=== PATIENT | male | born 1975 | race Caucasian/White ===

== ENCOUNTER 2020-06-24 09:50 | Emergency (ER) | payer SELFPAY ==
[~2020-06-24] VITALS: Ht 157.5 cm; Wt 69.0 kg
[2020-06-24] MEDS ORDERED: BACITRACIN ZINC OINT UDPKT TOP ONE (10:30)
[2020-06-24] MEDS ORDERED: LIDOCAINE 1%/EPI 1:100,000 10 ML VIAL IJ ONE (10:30)
[2020-06-24] MEDS ORDERED: TETANUS, DIPHTHERIA, PERTUSSIS VAC/PF 0.5ML (>7YR OLD) IM ONE (10:30)
[2020-06-24] MEDS ORDERED: HYDROCODONE/ACETAMINOPHEN 5/325MG TABLET PO ONE (10:45)
[2020-06-24] MEDS ORDERED: LIDOCAINE HCL/EPINEPHRINE 1%-EPI 1:100,000 20 ML VIAL INFIL ONE (11:01)
[2020-06-24 11:14] VITALS: BP 101/58
[2020-06-24] MEDS ORDERED: LIDOCAINE HCL 1% 20ML VIAL (Pyxis) INJ INFIL ONE (12:00)
[2020-06-24] MEDS ORDERED: CEFTRIAXONE SODIUM 1 G/VIAL IM ONE (12:00)
== END 2020-06-24 12:37 | disposition home or self-care (01) ==
LOC: ER 10:30
DX: L03.116 Cellulitis of left lower limb (principal); L02.416 Cutaneous abscess of left lower limb; E11.9 Type 2 diabetes mellitus without complications
CPT/HCPCS: 10060; 90471; 90715; 96372; 99284; J0696; J3490; Z7610

== ENCOUNTER 2021-11-12 16:01 | Emergency (ER) | payer SELFPAY ==
[~2021-11-12] VITALS: Ht 165.1 cm; Wt 82.0 kg
[2021-11-12] MEDS ORDERED: TETANUS, DIPHTHERIA, PERTUSSIS VAC/PF 0.5ML (>10YR OLD) IM ONE (16:15)
[2021-11-12] MEDS ORDERED: BACITRACIN ZINC OINT UDPKT TOP ONE (16:15)
[2021-11-12] MEDS ORDERED: LIDOCAINE HCL/PF 1% 10 MG/ML 5ML VIAL INFIL ONE (16:15)
[2021-11-12] MEDS ORDERED: LIDOCAINE HCL 1% 10 MG/ML 10ML VIAL INJ NR (16:45)
[2021-11-12] MEDS ORDERED: CEPH500T MT (17:08)
[2021-11-12] MEDS ORDERED: IBUP-2030 MT (17:08)
[2021-11-12] MEDS ORDERED: SULF1TAB48 MT (17:08)
[2021-11-12] MEDS ORDERED: IBUPROFEN 800MG TABLET PO ONE (17:15)
[2021-11-12 17:44] VITALS: BP 122/82
== END 2021-11-12 17:49 | disposition home or self-care (01) ==
LOC: ER 16:01
DX: L02.31 Cutaneous abscess of buttock (principal); L03.317 Cellulitis of buttock; L03.115 Cellulitis of right lower limb
CPT/HCPCS: 10060; 90471; 90715; 99283; J3490

== ENCOUNTER 2023-04-22 14:11 | Emergency (ER) | payer MEDICAID ==
[~2023-04-22] VITALS: Ht 172.7 cm; Wt 68.0 kg
[~2023-04-22 14:11] MED LIST: CEPH500T MT; CIPR750T4 MT; IBUP-2030 MT; PNV1TABL76 MT; SULF1TAB48 MT
[2023-04-22 14:23] VITALS: BP 103/59; PULSE 98; RESP 20; TEMP 98.5; O2SAT 100
[2023-04-22] MEDS ORDERED: LIDOCAINE HCL/PF 1% 10 MG/ML 5ML VIAL INFIL ONE (18:15)
[2023-04-22] MEDS ORDERED: IBUPROFEN 600MG TABLET PO ONE ×2 (18:15→19:00)
[2023-04-22] MEDS ORDERED: BACITRACIN ZINC OINT UDPKT TOP ONE (18:15)
[2023-04-22] MEDS ORDERED: SULF1TAB48 MT (18:49)
[2023-04-22] MEDS ORDERED: IBUP-2029 MT (18:49)
[2023-04-22] MEDS ORDERED: CEPH500C2 MT (18:49)
[2023-04-22] MEDS ORDERED: ACETAMINOPHEN 325MG TABLET PO ONE (19:00)
== END 2023-04-22 19:56 | disposition home or self-care (01) ==
LOC: ER 14:28
DX: L02.31 Cutaneous abscess of buttock (principal); E11.9 Type 2 diabetes mellitus without complications; F14.10 Cocaine abuse, uncomplicated; Z79.899 Other long term (current) drug therapy
CPT/HCPCS: 99283; 10060; J3490; 99282

== ENCOUNTER 2024-06-13 13:35 | Emergency (ER) | payer MEDICAID, OTHER ==
[~2024-06-13] VITALS: Ht 170.2 cm; Wt 73.0 kg
[~2024-06-13 13:35] MED LIST changes: +AMLO5TAB88 PO; +ASCO-339 MT; -CEPH500T MT; -CIPR750T4 MT; +GLYB2.5T4 MT; -IBUP-2030 MT; +LEVO750T68 MT; +LOSA1TAB40 MT; +METF-414 MT; -PNV1TABL76 MT; -SULF1TAB48 MT; +TOPUD PO; +ZINC100T8 MT
[2024-06-13 13:41] VITALS: O2SAT 99
[2024-06-13] MEDS ORDERED: BACITRACIN ZINC OINT UDPKT TOP ONE (14:30)
[2024-06-13] MEDS ORDERED: LIDOCAINE HCL/PF 1% 10 MG/ML 5ML VIAL INFIL ONE (14:30)
[2024-06-13] MEDS ORDERED: ACETAMINOPHEN 325MG TABLET PO ONE (14:30)
[2024-06-13] MEDS ORDERED: SULF1TAB48 MT (15:46)
[2024-06-13 16:00] VITALS: BP 151/85; PULSE 81; RESP 16; TEMP 36.94740; O2SAT 100
[2024-06-13] MEDS: ACETAMINOPHEN 325MG TABLET PO ONE (16:22)
[2024-06-13] MEDS: BACITRACIN ZINC OINT UDPKT TOP ONE (16:22)
[2024-06-13] MEDS: LIDOCAINE HCL/PF 1% 10 MG/ML 5ML VIAL INFIL ONE (16:23)
== END 2024-06-13 16:46 | disposition home or self-care (01) ==
LOC: ER 13:35
DX: L02.811 Cutaneous abscess of head [any part, except face] (principal); R51.9 Headache, unspecified; Z79.899 Other long term (current) drug therapy; Z79.84 Long term (current) use of oral hypoglycemic drugs
CPT/HCPCS: 10060; 99283; J3490; Z7610 ×2

== ENCOUNTER 2024-07-15 14:38 | Emergency (ER) | payer MEDICAID, OTHER ==
[~2024-07-15] VITALS: Ht 165.1 cm; Wt 81.6 kg
[~2024-07-15 14:38] MED LIST changes: +SULF1TAB48 MT
[2024-07-15 14:43] VITALS: O2SAT 99
[2024-07-15 14:45] VITALS: TEMP 98.6; O2SAT 99
[2024-07-15 15:45] VITALS: BP 154/78; PULSE 94; RESP 16
[2024-07-15] MEDS: IBUPROFEN 600MG TABLET PO ONE (15:45)
[2024-07-15] MEDS: BACITRACIN ZINC OINT UDPKT TOP ONE (17:19)
[2024-07-15] MEDS: LIDOCAINE HCL/PF 1% 10 MG/ML 5ML VIAL INFIL ONE (17:19)
[2024-07-15] MEDS ORDERED: CEPH500C2 MT (19:14)
[2024-07-15] MEDS ORDERED: IBUP-2029 MT (19:14)
[2024-07-15] MEDS ORDERED: SULF1TAB48 MT (19:14)
== END 2024-07-15 19:23 | disposition home or self-care (01) ==
LOC: ER 14:38
DX: L02.811 Cutaneous abscess of head [any part, except face] (principal); Z79.899 Other long term (current) drug therapy
CPT/HCPCS: 10061; 99284; J2003; Z7610 ×4

== ENCOUNTER 2024-07-17 14:45 | Emergency (ER) | payer OTHER ==
[~2024-07-17] VITALS: Ht 162.6 cm; Wt 82.0 kg
[~2024-07-17 14:45] MED LIST changes: +CEPH500C2 MT; +IBUP-2029 MT
[2024-07-17 14:48] VITALS: BP 148/82; TEMP 98.4; O2SAT 98
[2024-07-17 14:50] VITALS: PULSE 98; RESP 18; O2SAT 98
== END 2024-07-17 15:50 | disposition left against medical advice (07) ==
LOC: ER 14:45
DX: L02.811 Cutaneous abscess of head [any part, except face] (principal); Z48.02 Encounter for removal of sutures; Z53.21 Procedure and treatment not carried out due to patient leaving prior to being seen by health care provider

== ENCOUNTER 2024-07-17 22:40 | Emergency (ER) | payer OTHER ==
[~2024-07-17] VITALS: Ht 165.1 cm; Wt 73.0 kg
[2024-07-17 23:39] VITALS: O2SAT 100
[2024-07-17 23:42] VITALS: BP 171/93; PULSE 78; RESP 16; TEMP 97.7; O2SAT 100
== END 2024-07-18 03:31 | disposition home or self-care (01) ==
LOC: ER 22:40
DX: Z48.00 Encounter for change or removal of nonsurgical wound dressing (principal); Z79.899 Other long term (current) drug therapy; Z79.84 Long term (current) use of oral hypoglycemic drugs
CPT/HCPCS: 99281; Z7610